=== PATIENT | female | born 1935 | race American Indian/Alaskan Native ===

== ENCOUNTER 2017-05-11 07:30 | Emergency (ER) | payer MEDICARE ==
--- NOTE | 2017-05-11 08:36 | XRay Report ---
FINAL REPORT EXAM: XR SPINE LUMBOSACRAL 2-3V HISTORY: Fall COMPARISONS: None. FINDINGS: Three views lumbar spine Diffuse demineralization. Central compression deformity at L4 results in approximately 30 percent vertebral body height loss. No posterior fragmentation or retropulsion. There is mild anterolisthesis at L4-L5. Remaining vertebral body heights are preserved. Mild diffuse intervertebral disc space narrowing. Vascular calcification. Upper abdominal surgical clips. IMPRESSION: Central compression deformity at L4 with approximately 30 percent vertebral body height loss is of unknown chronicity. Follow-up MRI is recommended.
[2017-05-11 08:40] LABS: Basophils % (Auto) 0.3 % (0.0-1.8); Hematocrit 32.6 % (30.3-42.9); Hemoglobin 10.5 gm/dl (10.1-14.3); Mean Corpuscular HGB Conc 32 % (30-34); Mean Corpuscular Hemoglobin 27 pg (28-32); Mean Corpuscular Volume 85 fl (79-97); Platelet Count 224 K/mm3 (140-440); Red Blood Count 3.83 M/mm3 (3.65-5.03); Red Cell Distribution Width 18.3 % (13.2-15.2); White Blood Count 4.6 K/mm3 (4.5-11.0)
[2017-05-11 08:59] LABS: Alanine Aminotransferase 12 units/L (7-56); Albumin 3.4 g/dL (3.9-5); Albumin/Globulin Ratio 0.9 %; Alkaline Phosphatase 143 units/L (35-129); Anion Gap 17 mmol/L; BUN/Creatinine Ratio 11; Blood Urea Nitrogen 8 mg/dL (7-17); Calcium 8.8 mg/dL (8.4-10.2); Carbon Dioxide 27 mmol/L (22-30); Chloride 103.8 mmol/L (98-107); Glucose 91 mg/dL (65-100); Potassium 3.8 mmol/L (3.6-5.0); Sodium 144 mmol/L (137-145); Total Protein 7.3 g/dL (6.3-8.2)
[2017-05-11] MEDS ORDERED: SUBLIMAZE IV ONE (10:31)
--- NOTE | 2017-05-11 10:32 | Emergency Department Report ---
ED General Adult HPI - General Chief complaint: Fall Stated complaint: BACK PAIN Time Seen by Provider: 05/11/17 10:25 Source: patient, EMS (ems notes not available at time of chart dictation), RN notes reviewed Mode of arrival: Stretcher Limitations: Physical Limitation - History of Present Illness Initial comments: This is an 81-year-old female who was previously unknown to this provider, presents to the hospital after mechanical fall. Patient reports landing on her butt. Did not hit her head or neck. Patient denies headache, neck pain, chest pain, abdominal pain, back pain prior to the fall. Patient reports severe lower back pain which increases with palpation, decreases with rest. Patient reports the pain is so severe she cannot walk. She denies bladder/bowel retention and incontinence. -: Sudden Location: back Radiation: non-radiation Severity scale (0 -10): 8 Quality: aching Consistency: intermittent Improves with: rest Worsens with: movement Associated Symptoms: malaise, weakness. denies: chest pain, cough, diaphoresis , fever/chills, headaches, loss of appetite, shortness of breath, syncope - Related Data Previous Rx's Medication Instructions Recorded Last Taken Type prednisoLONE ACETATE 1% [Pred 1 drops OU Q2HR bottle 01/06/16 Unknown Rx Forte 1%] AtorvaSTATin [Lipitor] 40 mg PO QHS #30 tablet 01/26/16 Unknown Rx Baclofen [Lioresal] 5 mg PO BID #30 tablet 01/26/16 Unknown Rx Clopidogrel Bisulfate [Plavix] 75 mg PO DAILY #30 tablet 01/26/16 Unknown Rx Digoxin [Lanoxin] 0.125 mg PO DAILY #30 tablet 01/26/16 Unknown Rx Donepezil [Aricept] 10 mg PO QHS #30 tablet 01/26/16 Unknown Rx Famotidine [Pepcid] 20 mg PO BID #60 tablet 01/26/16 Unknown Rx Nitroglycerin [Nitro Dur] 0.3 mg TD QDAY #30 patch 01/26/16 Unknown Rx HYDROcodone/APAP 7.5-325 [[place] 1 each PO Q8HR PRN #14 tablet 01/31/16 Unknown Rx 7.5-325 mg TAB] Allergies Allergy/AdvReac Type Severity Reaction Status Date / Time aspirin AdvReac upset Verified 01/02/16 13:10 stomach ED Review of Systems ROS: Stated complaint: BACK PAIN Other details as noted in HPI ED Past Medical Hx - Past Medical History Hx Hypertension: Yes Hx CVA: Yes Hx Heart Attack/AMI: Yes Hx Congestive Heart Failure: Yes Hx HIV: No Additional medical history: brain aneurysm - Surgical History Hx Pacemaker: No Hx Appendectomy: Yes Hx Breast Surgery: Yes (tumor removed right breast) Additional Surgical History: brain surgery/ stomach surgery for cancer many years ago. LEFT EYE SURGERY - Social History Smoking Status: Unknown if ever smoked - Medications Home Medications: Home Medications Medication Instructions Recorded Confirmed Last Taken Type prednisoLONE ACETATE 1% [Pred 1 drops OU Q2HR bottle 01/06/16 01/31/16 Unknown Rx Forte 1%] AtorvaSTATin [Lipitor] 40 mg PO QHS #30 tablet 01/26/16 01/31/16 Unknown Rx Baclofen [Lioresal] 5 mg PO BID #30 tablet 01/26/16 01/31/16 Unknown Rx Clopidogrel Bisulfate [Plavix] 75 mg PO DAILY #30 tablet 01/26/16 01/31/16 Unknown Rx Digoxin [Lanoxin] 0.125 mg PO DAILY #30 tablet 01/26/16 01/31/16 Unknown Rx Donepezil [Aricept] 10 mg PO QHS #30 tablet 01/26/16 01/31/16 Unknown Rx Famotidine [Pepcid] 20 mg PO BID #60 tablet 01/26/16 01/31/16 Unknown Rx Nitroglycerin [Nitro Dur] 0.3 mg TD QDAY #30 patch 01/26/16 01/31/16 Unknown Rx HYDROcodone/APAP 7.5-325 [[place] 1 each PO Q8HR PRN #14 tablet 01/31/16 Unknown Rx 7.5-325 mg TAB] ED Physical Exam - General Limitations: Physical Limitation General appearance: alert, in no apparent distress - Head Head exam: Present: atraumatic, normocephalic - Eye Eye exam: Present: normal appearance, EOMI. Absent: nystagmus - ENT ENT exam: Present: normal exam, normal orophraynx, mucous membranes moist, normal external ear exam - Neck Neck exam: Present: normal inspection, full ROM - Respiratory Respiratory exam: Present: normal lung sounds bilaterally. Absent: respiratory distress - Cardiovascular Cardiovascular Exam: Present: regular rate, normal rhythm, normal heart sounds. Absent: systolic murmur, diastolic murmur, rubs, gallop - GI/Abdominal GI/Abdominal exam: Present: soft, normal bowel sounds. Absent: distended, tenderness, guarding, rebound, rigid, pulsatile mass - Extremities Exam Extremities exam: Present: normal inspection, full ROM, normal capillary refill. Absent: calf tenderness - Back Exam Back exam: Present: normal inspection, paraspinal tenderness, vertebral tenderness - Neurological Exam Neurological exam: Present: alert, oriented X3, CN II-XII intact, other ( Extraocular movements intact. Tongue midline. No facial droop. Facial sensation intact to light touch in the V1, V2, V3 distribution bilaterally. 5 and 5 strength in 4 extremities.. Sensation is intact to light touch in 4 extremities.). Absent: motor sensory deficit - Psychiatric Psychiatric exam: Present: normal affect, normal mood - Skin Skin exam: Present: warm, dry, intact, normal color. Absent: rash ED Course Vital Signs 05/11/17 05/11/17 05/11/17 07:42 07:48 08:15 Temperature 98 F Pulse Rate 80 76 Respiratory 25 H 24 Rate Blood Pressure 159/64 159/64 Blood Pressure 159/64 [Right] O2 Sat by Pulse 99 100 Oximetry 05/11/17 05/11/17 05/11/17 08:30 09:00 09:30 Temperature Pulse Rate 80 72 69 Respiratory 14 14 16 Rate Blood Pressure 155/76 156/73 151/66 Blood Pressure [Right] O2 Sat by Pulse 96 97 98 Oximetry 05/11/17 05/11/17 05/11/17 10:00 10:30 11:06 Temperature Pulse Rate 83 88 81 Respiratory 12 16 12 Rate Blood Pressure 150/76 164/84 164/84 Blood Pressure [Right] O2 Sat by Pulse 100 100 Oximetry 05/11/17 05/11/17 11:30 12:00 Temperature Pulse Rate 84 85 Respiratory 14 15 Rate Blood Pressure 162/83 160/82 Blood Pressure [Right] O2 Sat by Pulse 96 98 Oximetry ED Medical Decision Making - Lab Data Result diagrams: 05/11/17 08:29 05/11/17 08:29 Vital Signs 05/11/17 05/11/17 05/11/17 07:42 07:48 08:15 Temperature 98 F Pulse Rate 80 76 Respiratory 25 H 24 Rate Blood Pressure 159/64 159/64 Blood Pressure 159/64 [Right] O2 Sat by Pulse 99 100 Oximetry 05/11/17 05/11/17 05/11/17 08:30 09:00 09:30 Temperature Pulse Rate 80 72 69 Respiratory 14 14 16 Rate Blood Pressure 155/76 156/73 151/66 Blood Pressure [Right] O2 Sat by Pulse 96 97 98 Oximetry 05/11/17 05/11/17 05/11/17 10:00 10:30 11:06 Temperature Pulse Rate 83 88 81 Respiratory 12 16 12 Rate Blood Pressure 150/76 164/84 164/84 Blood Pressure [Right] O2 Sat by Pulse 100 100 Oximetry 05/11/17 05/11/17 11:30 12:00 Temperature Pulse Rate 84 85 Respiratory 14 15 Rate Blood Pressure 162/83 160/82 Blood Pressure [Right] O2 Sat by Pulse 96 98 Oximetry Lab Results 05/11/17 05/11/17 Range/Units 08:29 08:29 WBC 4.6 (4.5-11.0) K/mm3 RBC 3.83 (3.65-5.03) M/mm3 Hgb 10.5 (10.1-14.3) gm/dl Hct 32.6 (30.3-42.9) % MCV 85 (79-97) fl MCH 27 L (28-32) pg MCHC 32 (30-34) % RDW 18.3 H (13.2-15.2) % Plt Count 224 (140-440) K/mm3 Lymph % (Auto) 12.1 L (13.4-35.0) % [place] % (Auto) 7.9 H (0.0-7.3) % Eos % (Auto) 1.0 (0.0-4.3) % Baso % (Auto) 0.3 (0.0-1.8) % Lymph # 0.6 L (1.2-5.4) K/mm3 [place] # 0.4 (0.0-0.8) K/mm3 Eos # 0.0 (0.0-0.4) K/mm3 Baso # 0.0 (0.0-0.1) K/mm3 Seg Neutrophils % 78.7 H (40.0-70.0) % Seg Neutrophils # 3.6 (1.8-7.7) K/mm3 Sodium 144 (137-145) mmol/L Potassium 3.8 (3.6-5.0) mmol/L Chloride 103.8 (98-107) mmol/L Carbon Dioxide 27 (22-30) mmol/L Anion Gap 17 mmol/L BUN 8 (7-17) mg/dL Creatinine 0.7 (0.7-1.2) mg/dL Estimated GFR > 60 ml/min BUN/Creatinine Ratio 11 % Glucose 91 (65-100) mg/dL Calcium 8.8 (8.4-10.2) mg/dL Total Bilirubin 0.30 (0.1-1.2) mg/dL AST 23 (5-40) units/L ALT 12 (7-56) units/L Alkaline Phosphatase 143 H (35-129) units/L Total Protein 7.3 (6.3-8.2) g/dL Albumin 3.4 L (3.9-5) g/dL Albumin/Globulin Ratio 0.9 % - Radiology Data Radiology results: report reviewed, image reviewed Referring Physician: ANTHONY BLANC Patient Name: MARQUITA RICE Date of : 1935 Sex: Female Report Date: 2017-05-11 Report Status: Finalized Findings [facility] [address] [place] [address] Cat Scan Report Signed Patient: MARQUITA RICE MR#: [id number] : 1935 Acct:[id number] Age/Sex: 81 / F ADM Date: 05/11/17 Loc: ED Attending Dr: Ordering Physician: ANTHONY BLANC MD Date of Service: 05/11/17 Procedure(s): CT abdomen pelvis wo con Accession Number(s): [id number] cc: ANTHONY BLANC MD CT scan of abdomen and pelvis without IV contrast: History: Abdominal pain and back pain status post fall. Findings: Normal lung bases. No pleural pericardial effusion. Normal liver spleen pancreas. Distended gallbladder. No calculi. Common bile duct diameter 5 mm in the head of the pancreas and 8 mm at eileen hepatis. Normal adrenals. 1.7 cm and 1.4 cm and 0.9 cm cysts left kidney. 9 mm cyst right kidney. No calculi. No hydronephrosis. Distended urinary bladder. No free intraperitoneal air or fluid. No evidence of adenopathy. Calcified abdominal aorta without aneurysm. Gaseous colon with large volume of stool in colon. No definite evidence of appendicitis or diverticulitis. Impression: Cysts right and left kidney. Gaseous colon with nodular stool in colon. There is vertical nondisplaced fracture noted at the anterior aspect of the body of the fourth lumbar vertebra. Transcribed By: PTP Dictated By: DAMIAN MORE MD Electronically Authenticated By: DAMIAN MORE MD Signed Date/Time: 05/11/[address] scan of the brain, interpreted by radiology: No acute disease X-ray of the lumbar spine: Compression fracture - Medical Decision Making Differential diagnosis, including not limited to: Compression fracture, muscular skeletal back pain, debility, inability to walk secondary to back pain Assessment and plan: 81-year-old female with multiple medical comorbidities, however she is typically ambulatory at baseline, who had a mechanical fall today , landed on her butt, and has a very tender lumbar spine region, strength and sensation intact, exam not currently consistent with epidural compression syndrome, but there is a significant pain component to the patient's presentation. Patient given fentanyl for pain, but she is unable to walk. She is unable to walk secondary to pain. This hospital does not have spine surgery , trauma surgery, orthopedics available for consultation. Patient cannot be discharged home if she cannot walk. She will therefore be transferred to [facility] for specialty services not available at this hospital. Case was presented to the trauma surgeon, Dr. Hancock; she accepted the patient as an ER to ER transfer. Critical care attestation.: If time is entered above; I have spent that time in minutes in the direct care of this critically ill patient, excluding procedure time. ED Disposition Clinical Impression: Fall, Fracture of lumbar spine Disposition: [id number]-TRM GEN HOSP IP Is pt being admited?: No Does the pt Need Aspirin: No Condition: Good Referrals: ANTHONY RUIZ MD [Primary Care Provider] - 3-5 Days
--- NOTE | 2017-05-11 11:22 | Cat Scan Report ---
CT scan of head without IV contrast: Compared to 01/06/16. History: Fall. Findings: Left craniotomy with aneurysmal clipping. 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 No interval change. Moderate atrophy. No acute ischemia or hemorrhage. No extra-axial fluid collection. Impression: Stable postsurgical changes. No acute intracranial abnormality.
--- NOTE | 2017-05-11 11:30 | Cat Scan Report ---
CT scan of abdomen and pelvis without IV contrast: History: Abdominal pain and back pain status post fall. Findings: Normal lung bases. No pleural pericardial effusion. Normal liver spleen pancreas. Distended gallbladder. No calculi. Common bile duct diameter 5 mm in the head of the pancreas and 8 mm at eileen hepatis. Normal adrenals. 1.7 cm and 1.4 cm and 0.9 cm cysts left kidney. 9 mm cyst right kidney. No calculi. No hydronephrosis. Distended urinary bladder. No free intraperitoneal air or fluid. No evidence of adenopathy. Calcified abdominal aorta without aneurysm. Gaseous colon with large volume of stool in colon. No definite evidence of appendicitis or diverticulitis. Impression: Cysts right and left kidney. Gaseous colon with nodular stool in colon. There is vertical nondisplaced fracture noted at the anterior aspect of the body of the fourth lumbar vertebra.
[2017-05-11 12:05] VITALS: BP 160/82
[2017-05-11 13:41] LABS: Bilirubin,Urine NEG (Negative); Blood,Urine MOD (Negative); Ketones,Urine TR mg/dL (Negative); Leukocyte Esterase,Urine LG (Negative); Nitrite,Urine NEG (Negative); Protein,Urine <15 mg/dL mg/dL (Negative); Urobilinogen,Urine < 2.0 mg/dL (<2.0)
== END 2017-05-11 13:12 | disposition short-term general hospital (02) ==
LOC: ED 07:30
DX: S32.049A Unspecified fracture of fourth lumbar vertebra, initial encounter for closed fracture (principal); I10 Essential (primary) hypertension; I63.9 Cerebral infarction, unspecified; I25.2 Old myocardial infarction; I50.9 Heart failure, unspecified; Z98.890 Other specified postprocedural states; Z88.6 Allergy status to analgesic agent; W19.XXXA Unspecified fall, initial encounter; Y93.89 Activity, other specified; Y92.89 Other specified places as the place of occurrence of the external cause; Y99.8 Other external cause status
CPT/HCPCS: 36415; 51701; 70450; 72100; 74176; 80053; 80162; 81001; 85025; 96374; 99285; J3010